=== PATIENT | female | born 1980 | race Caucasian/White ===

== ENCOUNTER → 2017-03-15 | Outpatient (CLI) | payer BC ==
--- NOTE | 2017-03-17 13:20 | MG ---
Examination: Bilateral screening mammogram. Clinical history: Routine screening. Technique: Digital CC and MLO views of both breasts were obtained. Computer aided detection analysis was performed and used during the interpretation. Comparison: 02/12/2016. Findings: The breasts are composed of scattered fibroglandular densities. There is a new density present in the medial aspect of the left breast in the mid to posterior depth, seen on the CC view only. Additional imaging evaluation is recommended, with a spot compression magn ification view in the CC projection, rolled medial and rolled lateral views in the CC projection, a l ateral view of the left breast and a left breast ultrasound. No suspicious mass, area of architectural distortion or suspicious cluster of microcalcifications is noted in the right breast. Impression: 1. New density in the left breast, as described above. BI-RADS category 0 (ZERO) - ASSESSMENT INCOMPLETE; ADDITIONAL IMAGING IS NEEDED. Recommend immediate recall for additional imaging evaluation, as described above. Diagnostic CAD was utilized and reviewed. * 0 (ZERO) - ASSESSMENT INCOMPLETE; ADDITIONAL IMAGING IS NEEDED. * 0C - ASSESSMENT INCOMPLETE, NEEDS ADDITIONAL IMAGING EVALUATION AND/OR PRIOR MAMMOGRAMS FOR COMPARI SON. * 1/1 (ONE) - NEGATIVE. * 2/II (TWO) - BENIGN FINDINGS. * 3/III (THREE) - PROBABLY BENIGN FINDING; SHORT INTERVAL FOLLOW-UP SUGGESTED. * 4/IV (FOUR) - SUSPICIOUS ABNORMALITY; BIOPSY SHOULD BE CONSIDERED. * 5/V - HIGHLY SUSPICIOUS OF MALIGNANCY; BIOPSY SHOULD BE PERFORMED. * 6/IV - KNOWN BIOPSY PROVEN MALIGNANCY-APPROPRIATE ACTION SHOULD BE TAKEN. A NEGATIVE X-RAY REPORT SHOULD NOT DELAY BIOPSY IF A DOMINANT OR CLINICALLY SUSPICIOUS MASS IS PRESENT; 4 TO 8 PERCENT OF CANCERS ARE NOT IDENTIFIED BY X-RAY. A NEGATIVE REPORT MAY REINFORCE THE CLINICAL IMPRESSION. ADENOSIS AND DENSE BREASTS MAY OBSCURE AN UNDERLYING NEOPLASM. Reported By:
== END ==
LOC: RAD 15:31
PROVIDERS: ATTEND Specialist
DX: Z12.31 Encounter for screening mammogram for malignant neoplasm of breast (principal)
CPT/HCPCS: 77067

== ENCOUNTER → 2017-03-23 | Outpatient (CLI) | payer BC ==
--- NOTE | 2017-03-23 15:56 | US ---
HISTORY: Abnormal screening mammography with new left breast nodule Left breast digital diagnostic mammography with CAD and left breast ultrasound. Comparison: Multiple previous exams dating back to July 12, 2012 FINDINGS: Mammogram: Spot magnification, rolled CC, and mL views of the left breast were obtained. Scattered f ibroglandular tissue is seen to be present with a persistent partially obscured and partially circums cribed isodense nodule in the medial breast which will be correlated with ultrasound. There is no ar chitectural distortion. No skin thickening or nipple retraction is appreciated. No pathological ly mphadenopathy can be identified. Ultrasound: Multiple grayscale and color Doppler images of the left breast were obtained from 6-12 o' clock. At 9-10 o'clock, there are several sub cm anechoic cysts with posterior acoustical enhancement and no internal Doppler flow with predominantly smoothly marginated and well circumscribed borders m ost compatible with benign parenchymal cysts without a peripheral nodular component. A background of dense fibrocystic changes are noted. No suspicious cystic or solid nodule is identified to warrant bi opsy. The largest cluster of cysts is located at 9 o'clock approximately 2 cm from the nipple spannin g approximately 7 mm and felt to correspond to the mammographic findings. IMPRESSION: NO RADIOGRAPHIC EVIDENCE OF MALIGNANCY. ACR CATEGORY 2 - benign findings. FOLLOW-UP EXAM 1 YEAR. Diagnostic CAD was utilized and reviewed. * 0 (ZERO) - ASSESSMENT INCOMPLETE; ADDITIONAL IMAGING IS NEEDED. * 1/1 (ONE) - NEGATIVE. * 2/II (TWO) - BENIGN FINDINGS. * 3/III (THREE) - PROBABLY BENIGN FINDING; SHORT INTERVAL FOLLOW-UP SUGGESTED. * 4/IV (FOUR) - SUSPICIOUS ABNORMALITY; BIOPSY SHOULD BE CONSIDERED. * 5/V - HIGHLY SUSPICIOUS OF MALIGNANCY; BIOPSY SHOULD BE PERFORMED. A NEGATIVE X-RAY REPORT SHOULD NOT DELAY BIOPSY IF A DOMINANT OR CLINICALLY SUSPICIOUS MASS IS PRESENT; 4 TO 8 PERCENT OF CANCERS ARE NOT IDENTIFIED BY X-RAY. A NEGA TIVE REPORT MAY REINFORCE THE CLINICAL IMPRESSION. ADENOSIS AND DENSE BREASTS MAY OBSCURE AN UNDERLY ING NEOPLASM. Reported By:
== END ==
LOC: RAD 13:59
PROVIDERS: ATTEND Specialist
DX: R92.8 Other abnormal and inconclusive findings on diagnostic imaging of breast (principal)
CPT/HCPCS: 76642; 77065